=== PATIENT | male | born 1995 | race African-American/Black ===

== ENCOUNTER 2018-03-15 16:13 | Emergency (ER) | payer OTHER ==
--- NOTE | 2018-03-15 17:42 | ED ---
Chest Pain HPI - General Chief Complaint: Chest Pain Stated Complaint: Chest Pain Time Seen by Provider: 03/15/18 16:29 Source: patient, RN notes reviewed Mode of arrival: ambulatory Limitations: no limitations - History of Present Illness Initial Comments: 22-year-old male presents emergency Department chief complaint of chest pain. Patient states started while at work. Patient states that it hurts when he coughs, sneezes or twists or bends. Patient states that he has no prior cardiac disease. Patient is a daily smoker. Patient denies hypertension, hyperlipidemia or family history of heart disease. Patient denies any shortness breath, no headache no dizziness no nausea no vomiting no diarrhea no constipation. - Related Data Previous Rx's Medication Instructions Recorded Ibuprofen [Motrin] 600 mg PO Q8HR PRN #30 tab 03/15/18 Allergies Allergy/AdvReac Type Severity Reaction Status Date / Time No Known Allergies Allergy Verified 03/15/18 16:31 Review of Systems ROS Statement: Those systems with pertinent positive or pertinent negative responses have been documented in the HPI. ROS Other: All systems not noted in ROS Statement are negative. EKG Findings - EKG Comments: EKG Findings:: EKG performed at 16:49, sinus bradycardia with sinus arrhythmia, rate of 59, OR 122, QRS 96/QTC 396/392 Past Medical History Past Medical History: No Reported History History of Any Multi-Drug Resistant Organisms: None Reported Past Surgical History: No Surgical Hx Reported Past Psychological History: No Psychological Hx Reported Smoking Status: Current every day smoker Past Alcohol Use History: None Reported Past Drug Use History: None Reported General Exam Limitations: no limitations General appearance: alert, in no apparent distress Head exam: Present: atraumatic, normocephalic, normal inspection Respiratory exam: Present: normal lung sounds bilaterally, chest wall tenderness. Absent: respiratory distress, wheezes, rales, rhonchi, stridor Cardiovascular Exam: Present: regular rate, normal rhythm, normal heart sounds. Absent: systolic murmur, diastolic murmur, rubs, gallop, clicks GI/Abdominal exam: Present: soft, normal bowel sounds. Absent: distended, tenderness, guarding, rebound, rigid Skin exam: Present: warm, dry, intact, normal color. Absent: rash Course Vital Signs 03/15/18 03/15/18 16:15 17:43 Temperature 98.2 F 98.6 F Pulse Rate 64 61 Respiratory 16 18 Rate Blood Pressure 141/80 135/73 O2 Sat by Pulse 100 98 Oximetry Chest Pain MDM - MDM 22-year-old male presented for chest pain. Patient had chest x-ray, EKG which is unremarkable. Patient's pain is reproducible and worse with movement. This is more consistent with costochondritis and flexion of the chest wall. Patient is advised to stop smoking. He is counseled in detail greater than 3 minutes regarding smoking sensation. Patient was started on anti-inflammatories and return parameters were discussed. Disposition Clinical Impression: Chest wall pain Disposition: HOME SELF-CARE Condition: Stable Instructions: Costochondritis (ED) Additional Instructions: Please return to the Emergency Department if symptoms worsen or any other concerns. Prescriptions: Ibuprofen [Motrin] 600 mg PO Q8HR PRN #30 tab PRN Reason: Pain Is patient prescribed a controlled substance at d/c from ED?: No Referrals: None,Stated [Primary Care Provider] - 1-2 days
[2018-03-15 17:49] VITALS: RESP 18; TEMP 98.6
--- NOTE | 2018-03-15 17:53 | XR ---
EXAMINATION: XR chest 2V DATE AND TIME: 03/15/2018 5:13 PM ORDERING PROVIDER: Yogesh Madison CLINICAL INDICATION: Cough/pain TECHNIQUE: PA and lateral COMPARISON: None. DESCRIPTION: The lungs are clear. The pleural spaces are negative. The cardiac silhouette is not enlarged. The mediastinal and pleural silhouettes are unremarkable. The skeletal structures are intact without focal findings. The soft tissues are unremarkable. IMPRESSION: NO ACUTE PROCESS.
[2018-03-15 18:01] VITALS: BP 124/88; PULSE 68
== END 2018-03-15 18:01 | disposition home or self-care (01) ==
LOC: EC 16:13
DX: R07.89 Other chest pain (principal); F17.200 Nicotine dependence, unspecified, uncomplicated; Z71.6 Tobacco abuse counseling
CPT/HCPCS: 71046; 93005; 99285; 99406

== ENCOUNTER 2018-11-24 00:36 | Emergency (ER) | payer OTHER ==
[2018-11-24 00:59] VITALS: BP 134/73; PULSE 78; RESP 20
[2018-11-24] MEDS ORDERED: ACETAMINOPHEN TAB 325 MG TAB PO STA (01:31)
[2018-11-24] MEDS ORDERED: IBUPROFEN 600 MG TAB PO STA (01:31)
[2018-11-24] MEDS ORDERED: DEXAMETHASONE SOD PHOSPHATE 10 MG/ML 1 ML VIAL IM STA (01:32)
--- NOTE | 2018-11-24 02:30 | ED ---
ENT HPI - General Chief complaint: ENT Stated complaint: ENT,brittanieroat Time Seen by Provider: 11/24/18 01:12 Source: patient Mode of arrival: ambulatory Limitations: no limitations - History of Present Illness Initial comments: 23-year-old male patient presents to the emergency department today for complaints of sore throat. Patient states that sore throat started a couple days ago but worsened tonight. Patient states very difficult to swallow due to the pain. Patient states he has felt feverish and chilled with this. States he has not taking anything for pain or discomfort. Denies any nasal congestion or cough. States he has been fatigued. Denies any sick contacts. Patient denies any recent rash, shortness breath, chest pain, abdominal pain, nausea, vomiting, diarrhea, constipation, back pain, numbness, tingling, dizziness, weakness, hematuria, dysuria, urinary urgency, urinary frequency, headache, visual changes, or any other complaints. - Related Data Home Medications Medication Instructions Recorded Confirmed No Known Home Medications 11/24/18 11/24/18 Allergies Allergy/AdvReac Type Severity Reaction Status Date / Time No Known Allergies Allergy Verified 03/15/18 16:31 Review of Systems ROS Statement: Those systems with pertinent positive or pertinent negative responses have been documented in the HPI. ROS Other: All systems not noted in ROS Statement are negative. Past Medical History Past Medical History: No Reported History History of Any Multi-Drug Resistant Organisms: None Reported Past Surgical History: No Surgical Hx Reported Past Psychological History: No Psychological Hx Reported Smoking Status: Current every day smoker Past Alcohol Use History: None Reported Past Drug Use History: Marijuana General Exam Limitations: no limitations General appearance: alert, in no apparent distress, other (Physical well- developed, well-nourished adult male patient in no acute distress. Vital signs upon presentation are temperature 100.0F, pulse 78, respirations 20, blood pressure 134/73, pulse ox 99% on room air.) Eye exam: Present: normal appearance, PERRL, EOMI. Absent: scleral icterus, conjunctival injection, periorbital swelling ENT exam: Present: mucous membranes moist, TM's normal bilaterally. Absent: normal exam, normal oropharynx (Pharyngeal erythema, tonsillar hypertrophy) Neck exam: Present: normal inspection. Absent: tenderness, meningismus, lymphadenopathy Respiratory exam: Present: normal lung sounds bilaterally. Absent: respiratory distress, wheezes, rales, rhonchi, stridor Cardiovascular Exam: Present: regular rate, normal rhythm, normal heart sounds. Absent: systolic murmur, diastolic murmur, rubs, gallop, clicks GI/Abdominal exam: Present: soft, normal bowel sounds. Absent: distended, tenderness, guarding, rebound, rigid Neurological exam: Present: alert, oriented X3, CN II-XII intact Psychiatric exam: Present: normal affect, normal mood Skin exam: Present: warm, dry, intact, normal color. Absent: rash Course Vital Signs 11/24/18 11/24/18 00:56 03:11 Temperature 100 F H 98.1 F Pulse Rate 78 Respiratory 20 Rate Blood Pressure 134/73 O2 Sat by Pulse 99 Oximetry Medical Decision Making - Medical Decision Making 23-year-old male patient presented to the emergency department today for evaluation of sore throat. Physical examination did reveal pharyngeal erythema. There is no tonsillar exudate or hypertrophy. No lymphadenopathy. Strep and mono test were negative. Patient symptoms are consistent with viral pharyngitis. He was given an IM dose of Decadron here in the emergency department. He is instructed to increase fluids and alternate Tylenol Motrin for pain and fever control. He is instructed to follow-up with his primary care physician for recheck in 1-2 days. Return parameters were discussed in detail. He verbalizes understanding and agrees with this plan. - Lab Data Lab Results 11/24/18 11/24/18 Range/Units 01:37 01:37 Heterophile Antibody Negative (Negative) Group A Strep Rapid Negative (Negative) Disposition Clinical Impression: Viral pharyngitis Disposition: HOME SELF-CARE Condition: Good Instructions (If sedation given, give patient instructions): Pharyngitis (ED) Additional Instructions: Increase fluids. Take Tylenol and Motrin for pain and fever control. Use cough drops and lozenges to soothe the throat. Follow-up with primary care physician for recheck in 1-2 days. Return to the emergency department immediately for any new, worsening, or concerning symptoms. Is patient prescribed a controlled substance at d/c from ED?: No Referrals: None,Stated [Primary Care Provider] - 1-2 days Time of Disposition: 02:53
[2018-11-24 03:12] VITALS: TEMP 98.1
== END 2018-11-24 03:11 | disposition home or self-care (01) ==
LOC: EC 00:36
DX: J02.9 Acute pharyngitis, unspecified (principal); R53.83 Other fatigue; F17.200 Nicotine dependence, unspecified, uncomplicated
CPT/HCPCS: 36415; 86308; 87081; 87430; 99283; 96372; J1100

== ENCOUNTER 2019-01-03 19:09 | Emergency (ER) | payer BC, OTHER ==
[2019-01-03 19:15] VITALS: BP 132/82; PULSE 68; RESP 18; TEMP 98.2
[2019-01-03] MEDS ORDERED: CYCLOBENZAPRINE 10MG STARTER 3 TAB BTL PO STA (19:33)
[2019-01-03] MEDS ORDERED: IBUPROFEN 600 MG STARTER PACK 4 TAB BTL PO STA (19:33)
--- NOTE | 2019-01-03 19:36 | ED ---
Back Pain HPI - General Chief Complaint: Back Pain/Injury Stated Complaint: back pain Time Seen by Provider: 01/03/19 19:19 Source: patient, RN notes reviewed, old records reviewed Limitations: no limitations - History of Present Illness Initial Comments: Patient is 23-year-old male who presents emergency department today with chief plan of lower back pain worse with movement. Patient reports symptoms started the past few days after starting a new job. Patient states he's had this happen intermittently starting new physical activity. Patient states he's had no fall or trauma to the back. He denies any fevers chills. Denies any saddle anesthesias. He denies any radiation of pain. Patient denies any recent fever, chills, shortness of breath, chest pain, back pain, abdominal pain, nausea vomiting, numbness or tingling, dysuria or hematuria, constipation or diarrhea, headaches or visual changes, or any other current symptoms - Related Data Previous Rx's Medication Instructions Recorded Ibuprofen [Motrin] 600 mg PO Q6HR PRN #20 tab 01/03/19 Allergies Allergy/AdvReac Type Severity Reaction Status Date / Time No Known Allergies Allergy Verified 01/03/19 19:15 Review of Systems ROS Statement: Those systems with pertinent positive or pertinent negative responses have been documented in the HPI. ROS Other: All systems not noted in ROS Statement are negative. Past Medical History Past Medical History: No Reported History History of Any Multi-Drug Resistant Organisms: None Reported Past Surgical History: No Surgical Hx Reported Past Psychological History: No Psychological Hx Reported Smoking Status: Current every day smoker Past Alcohol Use History: None Reported Past Drug Use History: Marijuana General Exam Limitations: no limitations General appearance: alert, in no apparent distress Head exam: Present: atraumatic, normocephalic, normal inspection Eye exam: Present: normal appearance, PERRL, EOMI. Absent: scleral icterus, conjunctival injection, periorbital swelling ENT exam: Present: normal exam, mucous membranes moist Neck exam: Present: normal inspection. Absent: tenderness, meningismus, lymphadenopathy Respiratory exam: Present: normal lung sounds bilaterally Cardiovascular Exam: Present: regular rate, normal rhythm, normal heart sounds. Absent: systolic murmur, diastolic murmur, rubs, gallop, clicks GI/Abdominal exam: Present: soft, normal bowel sounds. Absent: distended, guarding, rebound, rigid Extremities exam: Present: normal inspection, full ROM, normal capillary refill. Absent: tenderness, pedal edema, joint swelling, calf tenderness Back exam: Present: normal inspection, tenderness (lumbar paraspinal muscle tenderness ). Absent: muscle spasm, paraspinal tenderness Neurological exam: Present: alert, oriented X3, CN II-XII intact Psychiatric exam: Present: normal affect, normal mood Skin exam: Present: warm, dry, intact, normal color. Absent: rash Course Vital Signs 01/03/19 19:12 Temperature 98.2 F Pulse Rate 68 Respiratory 18 Rate Blood Pressure 132/82 O2 Sat by Pulse 99 Oximetry Medical Decision Making - Medical Decision Making 23-year-old male presents emergency department today with complaints of lower back pain and strain after lifting. Has no lumbar spinal tenderness. Patient has full range of motion and normal pulses and sensation distally. Patient will be discharged at this time with prescription for Motrin short course of muscle relaxers. Discussed putting warm compresses over the area. Disposition Clinical Impression: Lumbar back sprain Disposition: HOME SELF-CARE Condition: Good Instructions (If sedation given, give patient instructions): Acute Low Back Pain (ED) Additional Instructions: Patient advised to take Motrin and Tylenol for pain. Follow-up with primary care physician and commercial loan specialist if symptoms persist. Patient should apply warm compresses over the back. Return to the emergency department if any alarming signs or symptoms occur. Prescriptions: Ibuprofen [Motrin] 600 mg PO Q6HR PRN #20 tab PRN Reason: Pain Is patient prescribed a controlled substance at d/c from ED?: No Referrals: None,Stated [Primary Care Provider] - 1-2 days Laura Juarez MD [STAFF PHYSICIAN] - 1-2 days Time of Disposition: 19:34
== END 2019-01-03 19:44 | disposition home or self-care (01) ==
LOC: EC 19:09
DX: S33.5XXA Sprain of ligaments of lumbar spine, initial encounter (principal); F17.200 Nicotine dependence, unspecified, uncomplicated
CPT/HCPCS: 99283

== ENCOUNTER 2019-06-25 21:39 | Emergency (ER) | payer BC ==
[2019-06-25 21:47] VITALS: RESP 18
--- NOTE | 2019-06-25 23:01 | ED ---
Chest Pain HPI - General Chief Complaint: Chest Pain Stated Complaint: Chest pain Time Seen by Provider: 06/25/19 22:19 Source: patient Mode of arrival: ambulatory Limitations: no limitations - History of Present Illness Initial Comments: Patient is 24-year-old male presenting to emergency Department with a chest chief complaint of chest pain and shortness of breath. Patient reports he developed a burning sensation in his chest that is especially exacerbated with inspiration. Patient also reports he developed shortness of breath at the same time. Patient reports the chest pain is not reproducible. Patient denies history of asthma. Patient smokes about a pack daily. Patient currently denies any chest pain, shortness of breath or wheezing. Patient reports he recently started a new job and has slowly began to develop respiratory symptoms. Patient denies cough, nausea, vomiting, night sweats fevers or chills. Patient denies URI symptoms. Patient denies diaphoresis or previous history of cardiac vascular disease. - Related Data Previous Rx's Medication Instructions Recorded Nicotine 14Mg/24Hr Patch [Habitrol] 1 patch TRANSDERM DAILY #8 patch 06/26/19 Allergies Allergy/AdvReac Type Severity Reaction Status Date / Time No Known Allergies Allergy Verified 06/25/19 22:14 Review of Systems ROS Statement: Those systems with pertinent positive or pertinent negative responses have been documented in the HPI. ROS Other: All systems not noted in ROS Statement are negative. EKG Findings - EKG Comments: EKG Findings:: Normal sinus rhythm with sinus arrhythmia. Ventricular rate 69, AK interval 138, QRS duration 90, QT/QTC 386/413, p-r-t axes 66 76 56 Past Medical History Past Medical History: No Reported History History of Any Multi-Drug Resistant Organisms: None Reported Past Surgical History: No Surgical Hx Reported Past Psychological History: No Psychological Hx Reported Smoking Status: Current every day smoker Past Alcohol Use History: None Reported Past Drug Use History: Marijuana General Exam Limitations: no limitations General appearance: alert, in no apparent distress Head exam: Present: atraumatic, normocephalic, normal inspection Eye exam: Present: normal appearance, PERRL, EOMI Pupils: Present: normal accommodation ENT exam: Present: normal exam, normal oropharynx, mucous membranes moist, TM's normal bilaterally, normal external ear exam Neck exam: Present: normal inspection, full ROM. Absent: tenderness Respiratory exam: Present: normal lung sounds bilaterally Cardiovascular Exam: Present: regular rate, normal rhythm, normal heart sounds Extremities exam: Present: normal inspection, full ROM Back exam: Present: normal inspection, full ROM Neurological exam: Present: alert, oriented X3 Psychiatric exam: Present: normal affect, normal mood Skin exam: Present: warm, intact, normal color Course Vital Signs 06/25/19 21:45 Temperature 98.4 F Pulse Rate 86 Respiratory 18 Rate Blood Pressure 170/70 O2 Sat by Pulse 98 Oximetry Chest Pain MDM - Core Measures AMI Core Measures Followed: No - Differential Diagnosis Pleurisy-Other, GERD - MDM Patient is a 24-year-old male presenting to emergency Department with a chief complaint of chest pain or shortness of breath. Patient reports burning sensation in his chest that only occurred last night. Patient reports the pain was exacerbated with full inspiration. On initial evaluation patient does not report any chest pain or shortness of breath. Patient is a smoker and started a new job about one week ago that has a lot of dust. Patient doesn't have any previous cardiac history or any family history of cardiovascular issues. EKG is unremarkable. Chest x-ray was reviewed with Dr. Castro and is unremarkable. At this point no further workup is warranted, as I suspect the patient to have the shortness of breath due to smoking and possible dust work exposure. I believe the patient has not suffered actual chest pain but rather an exacerbation of his shortness of breath. Patient has stable vitals and discharge. Patient also given a prescription of nicotine patches.I counseled the patient for smoking cessation for greater than 3 minutes. Strict return parameters were thoroughly discussed the patient was understanding and agreeable. Case discussed with physician. Disposition Clinical Impression: Shortness of breath Disposition: HOME SELF-CARE Condition: Stable Instructions (If sedation given, give patient instructions): Shortness of Breath (ED) Additional Instructions: Please follow with primary care. Please return to emergency department if symptoms worsen. Please avoid smoking cigarettes. Is patient prescribed a controlled substance at d/c from ED?: No Referrals: None,Stated [Primary Care Provider] - 1-2 days Time of Disposition: 00:37
[2019-06-26 00:45] VITALS: BP 122/70; PULSE 61; TEMP 97.9
--- NOTE | 2019-06-26 02:04 | XR ---
EXAM: XR Chest, 2 Views CLINICAL HISTORY: ITS.REASON XR Reason: sob TECHNIQUE: Frontal and lateral views of the chest. COMPARISON: 03/15/18 FINDINGS: Lungs: No consolidation or mass. Pleural space: No effusion. Heart: No cardiomegaly. Mediastinum: Unremarkable. Bones/joints: No acute findings. IMPRESSION: No acute cardiopulmonary process.
== END 2019-06-26 00:45 | disposition home or self-care (01) ==
LOC: EC 21:39
DX: R06.02 Shortness of breath (principal); F17.210 Nicotine dependence, cigarettes, uncomplicated; Z71.6 Tobacco abuse counseling
CPT/HCPCS: 71046; 93005; 99285

== ENCOUNTER 2020-05-21 13:20 | Emergency (ER) | payer BC ==
--- NOTE | 2020-05-21 13:37 | ED ---
ENT HPI - General Chief complaint: ENT Stated complaint: Ear pain, throat pain Time Seen by Provider: 05/21/20 13:31 Source: patient, RN notes reviewed, old records reviewed Mode of arrival: ambulatory Limitations: no limitations - History of Present Illness Initial comments: Patient is a 25-year-old male presents for intermittent today for evaluation for concern for sore throat and L ear pain for 3 days.Patient denies any history of sick contacts. Reports he took some Tylenol last night. But nothing today. Reports it seems like it's hard to her to swallow due to the pain of the back of his throat. Patient denies any coughing or difficulty breathing. He denies any nausea or vomiting. Denies any recent antibiotic use. - Related Data Previous Rx's Medication Instructions Recorded Nicotine 14Mg/24Hr Patch [Habitrol] 1 patch TRANSDERM DAILY #8 patch 06/26/19 Amoxicillin 500 mg PO TID #30 capsule 05/21/20 predniSONE [Deltasone] 20 mg PO DIRECTED #12 tab 05/21/20 Allergies Allergy/AdvReac Type Severity Reaction Status Date / Time No Known Allergies Allergy Verified 05/21/20 13:26 Review of Systems ROS Statement: Those systems with pertinent positive or pertinent negative responses have been documented in the HPI. ROS Other: All systems not noted in ROS Statement are negative. Past Medical History Past Medical History: No Reported History History of Any Multi-Drug Resistant Organisms: None Reported Past Surgical History: No Surgical Hx Reported Past Psychological History: No Psychological Hx Reported Smoking Status: Current every day smoker Past Alcohol Use History: None Reported Past Drug Use History: Marijuana General Exam - General Exam Comments Initial Comments: [id number] male. Alert and oriented 3. No significant distress. Limitations: no limitations General appearance: alert, in no apparent distress Head exam: Present: atraumatic, normocephalic, normal inspection Eye exam: Present: normal appearance, PERRL, EOMI. Absent: scleral icterus, conjunctival injection, periorbital swelling ENT exam: Present: normal exam, mucous membranes moist. Absent: normal oropharynx (erythematous oropharynx, some exudate noted. No peritonsillar abscess, patient has normal uvula, no drooling. ) Neck exam: Present: normal inspection. Absent: tenderness, meningismus, lymphadenopathy Respiratory exam: Present: normal lung sounds bilaterally. Absent: respiratory distress, wheezes, rales, rhonchi, stridor Cardiovascular Exam: Present: regular rate, normal rhythm, normal heart sounds. Absent: systolic murmur, diastolic murmur, rubs, gallop, clicks Course Vital Signs 05/21/20 13:25 Temperature 98.8 F Pulse Rate 83 Respiratory 20 Rate Blood Pressure 134/75 O2 Sat by Pulse 99 Oximetry Medical Decision Making - Medical Decision Making Is a 25-year-old male presents emergency department today for evaluation for sore throat and left ear pain. He has evidence of pharyngeal erythema or tonsillar swelling. It is of some tonsillar adenopathy as well. TMs appear intact with minimal erythema on the left TM. No drainage noted. Ear canals are normal. Treated the patient's temperature of pharyngitis with amoxicillin. Was given a dose of steroid for tonsillar swelling. Patient advised close follow-up with primary care doctor. Disposition Clinical Impression: Pharyngitis Disposition: HOME SELF-CARE Condition: Good Instructions (If sedation given, give patient instructions): Pharyngitis (ED) Additional Instructions: Please use medication as discussed. Please follow up with family doctor if symptoms have not improved over the next two days. Please return to the emergency room if your symptoms increase or worsen or for any other concerns. Prescriptions: Amoxicillin 500 mg PO TID #30 capsule predniSONE [Deltasone] 20 mg PO DIRECTED #12 tab Is patient prescribed a controlled substance at d/c from ED?: No Referrals: None,Stated [Primary Care Provider] - 1-2 days Sandra Sue MD [REFERRING] - 1-2 days Time of Disposition: 13:54
[2020-05-21] MEDS ORDERED: IBUPROFEN 600 MG STARTER PACK 4 TAB BTL PO STA (13:42)
[2020-05-21] MEDS ORDERED: ACETAMINOPHEN TAB 500 MG TAB PO STA (13:42)
[2020-05-21] MEDS ORDERED: AMOXICILLIN 500 MG CAP PO ONE (13:43)
[2020-05-21 14:39] VITALS: BP 135/70; PULSE 87; RESP 16; TEMP 98.2
== END 2020-05-21 14:37 | disposition home or self-care (01) ==
LOC: EC 13:20
DX: J02.9 Acute pharyngitis, unspecified (principal); H92.02 Otalgia, left ear; F17.200 Nicotine dependence, unspecified, uncomplicated
CPT/HCPCS: 87081; 87430; 99284

== ENCOUNTER 2020-07-18 02:50 | Emergency (ER) | payer BC, OTHER ==
[2020-07-18] MEDS ORDERED: MORPHINE SULFATE 4 MG/ML SYRINGE IV STA (03:05)
[2020-07-18] MEDS ORDERED: SODIUM CHLORIDE 0.9% 1,000 ML IV ONE (03:05)
[2020-07-18 03:24] LABS: Basophils # (A) 0.1 k/uL (0-0.2); Basophils % (A) 0 %; Eosinophils # (A) 0.2 k/uL (0-0.7); Eosinophils % (A) 2 %; HCT 47.6 % (39.0-53.0); HGB 15.7 gm/dL (13.0-17.5); Lymphocytes # (A) 2.9 k/uL (1.0-4.8); Lymphocytes % (A) 24 %; MCH 31.1 pg (25.0-35.0); MCHC 32.9 g/dL (31.0-37.0); MCV 94.7 fL (80.0-100.0); Monocytes # (A) 0.5 k/uL (0-1.0); Monocytes % (A) 4 %; Neutrophils # (A) 8.3 k/uL (1.3-7.7); Neutrophils % (A) 68 %; Platelet Count 241 k/uL (150-450); RBC 5.03 m/uL (4.30-5.90); RDW 12.5 % (11.5-15.5); WBC 12.2 k/uL (3.8-10.6)
[2020-07-18 03:27] LABS: Appearance,Urine Clear (Clear); Bilirubin,Urine Negative (Negative); Blood,Urine Negative (Negative); Color,Urine Colorless; Glucose,Urine (UA) Negative (Negative); Ketones,Urine Negative (Negative); Leukocyte Esterase,Urine Negative (Negative); Nitrite,Urine Negative (Negative); Protein,Urine Negative (Negative); Specific Gravity,Urine 1.003 (1.001-1.035); Urobilinogen,Urine <2.0 mg/dL (<2.0)
[2020-07-18 03:33] LABS: INR 0.9 (<1.2); Partial Thromboplastin Time 22.6 sec (22.0-30.0); Prothrombin Time 9.6 sec (9.0-12.0)
[2020-07-18 03:46] LABS: ALT 18 U/L (4-49); AST 34 U/L (17-59); African American GFR (CKD) >90 (>60 ml/min/1.73 sqM); Albumin 4.8 g/dL (3.5-5.0); Alkaline Phosphatase 60 U/L (38-126); Anion Gap 14 mmol/L; Blood Urea Nitrogen 14 mg/dL (9-20); Calcium 9.7 mg/dL (8.4-10.2); Carbon Dioxide 20 mmol/L (22-30); Chloride 107 mmol/L (98-107); Glucose 107 mg/dL (74-99); Non-African American GFR(CKD) >90 (>60 ml/min/1.73 sqM); Sodium 141 mmol/L (137-145); Total Bilirubin 0.6 mg/dL (0.2-1.3); Total Protein 8.1 g/dL (6.3-8.2)
[2020-07-18 03:47] LABS: Amphetamine Screen,Urine Not Detected (NotDetected); Barbiturate Screen,Urine Not Detected (NotDetected); Benzodiazepines Screen,Urine Not Detected (NotDetected); Cocaine Screen,Urine Not Detected (NotDetected); Methadone Screen, Urine Not Detected (NotDetected); Opiate Screen,Urine Not Detected (NotDetected); Oxycodone Screen, Urine Not Detected (NotDetected); Phencyclidine Screen,Urine Not Detected (NotDetected); Tricyclic Antidepressant,Urine Not Detected (NotDetected); Urn Cannabinoid Scrn Detected (NotDetected)
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
--- NOTE | 2020-07-18 03:51 | XR ---
EXAMINATION TYPE: XR chest 1V portable DATE OF EXAM: 07/18/2020 COMPARISON: 06/25/2019 HISTORY: Chest pain TECHNIQUE: Single view FINDINGS: Heart is normal. Lungs are clear. Diaphragm is normal. Bony thorax appears normal. IMPRESSION: Normal chest. No change.
[2020-07-18 03:55] LABS: Alcohol 188 mg/dL
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
[2020-07-18 06:57] VITALS: BP 122/68; PULSE 77; RESP 18; TEMP 97.6
== END 2020-07-18 06:30 | disposition home or self-care (01) ==
LOC: EC 02:50
DX: T14.8XXA Other injury of unspecified body region, initial encounter (principal); F17.200 Nicotine dependence, unspecified, uncomplicated; V43.52XA Car driver injured in collision with other type car in traffic accident, initial encounter; Y92.410 Unspecified street and highway as the place of occurrence of the external cause
CPT/HCPCS: 36415; 93005; 86900; 86901; 80053; 83605; 84484; 85025; 85610; 85730; 86850; 81003; 80306; 80320; 73610; 71045; 72125; 70450; 74177; 99285; 96374; 96361; J2270; Q9967

== ENCOUNTER 2020-12-21 06:45 | Emergency (ER) | payer OTHER ==
[2020-12-21 06:52] VITALS: TEMP 98
[2020-12-21] MEDS ORDERED: ASPIRIN 81 MG PO STA (07:05)
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
[2020-12-21 07:27] LABS: Basophils % (A) 0 %; Eosinophils # (A) 0.1 k/uL (0-0.7); Eosinophils % (A) 2 %; HCT 42.1 % (39.0-53.0); HGB 13.9 gm/dL (13.0-17.5); Lymphocytes # (A) 1.1 k/uL (1.0-4.8); Lymphocytes % (A) 15 %; MCH 31.3 pg (25.0-35.0); MCV 94.9 fL (80.0-100.0); Mean Platelet Volume 6.6; Monocytes # (A) 0.5 k/uL (0-1.0); Monocytes % (A) 6 %; Neutrophils # (A) 5.2 k/uL (1.3-7.7); Neutrophils % (A) 74 %; Platelet Count 257 k/uL (150-450); RBC 4.44 m/uL (4.30-5.90); RDW 11.7 % (11.5-15.5)
[2020-12-21 07:32] VITALS: BP 128/71; PULSE 71; RESP 16
[2020-12-21 07:37] LABS: ALT 19 U/L (4-49); AST 25 U/L (17-59); African American GFR (CKD) >90 (>60 ml/min/1.73 sqM); Albumin 4.3 g/dL (3.5-5.0); Alkaline Phosphatase 53 U/L (38-126); Anion Gap 8 mmol/L; Blood Urea Nitrogen 10 mg/dL (9-20); Calcium 9.7 mg/dL (8.4-10.2); Carbon Dioxide 27 mmol/L (22-30); Chloride 105 mmol/L (98-107); Glucose 127 mg/dL (74-99); Non-African American GFR(CKD) >90 (>60 ml/min/1.73 sqM); Potassium 4.4 mmol/L (3.5-5.1); Sodium 140 mmol/L (137-145); Total Bilirubin 1.1 mg/dL (0.2-1.3); Total Protein 7.7 g/dL (6.3-8.2)
[2020-12-21 07:42] LABS: INR 0.9 (<1.2); Partial Thromboplastin Time 25.5 sec (22.0-30.0); Prothrombin Time 9.8 sec (9.0-12.0)
== END 2020-12-21 08:08 | disposition home or self-care (01) ==
LOC: EC 06:45
DX: J18.9 Pneumonia, unspecified organism (principal); F17.200 Nicotine dependence, unspecified, uncomplicated
CPT/HCPCS: 36415; 71046; 80053; 83735; 84484; 85025; 85379; 85610; 85730; 93005; 99285

== ENCOUNTER 2021-03-16 06:31 | Emergency (ER) | payer OTHER ==
[2021-03-16 06:44] VITALS: RESP 18
--- NOTE | 2021-03-16 06:52 | ED ---
General Adult HPI - General Chief complaint: Shortness of Breath Stated complaint: SOB, headache Time Seen by Provider: 03/16/21 06:44 Source: patient, RN notes reviewed Mode of arrival: ambulatory Limitations: no limitations - History of Present Illness Initial comments: 25-year-old male presents emergency Department with chief complaint of body aches, not feeling well this morning, shortness breath. Patient concerning the Covid. No past medical history. No medications patient has nausea vomiting diarrhea constipation no fevers or chills. Patient denies any known sick contacts no other complaints. - Related Data Home Medications Medication Instructions Recorded Confirmed No Known Home Medications 03/16/21 03/16/21 Allergies Allergy/AdvReac Type Severity Reaction Status Date / Time No Known Allergies Allergy Verified 03/16/21 08:32 Review of Systems ROS Statement: Those systems with pertinent positive or pertinent negative responses have been documented in the HPI. ROS Other: All systems not noted in ROS Statement are negative. Past Medical History Past Medical History: No Reported History History of Any Multi-Drug Resistant Organisms: None Reported Past Surgical History: No Surgical Hx Reported Past Psychological History: No Psychological Hx Reported Smoking Status: Current every day smoker Past Alcohol Use History: Rare Past Drug Use History: Marijuana General Exam Limitations: no limitations General appearance: alert, in no apparent distress Head exam: Present: atraumatic, normocephalic, normal inspection Eye exam: Present: normal appearance, PERRL, EOMI. Absent: scleral icterus, conjunctival injection, periorbital swelling ENT exam: Present: normal exam, normal oropharynx, mucous membranes moist, TM's normal bilaterally Neck exam: Present: normal inspection, full ROM. Absent: tenderness, meningismus, lymphadenopathy Respiratory exam: Present: normal lung sounds bilaterally. Absent: respiratory distress, wheezes, rales, rhonchi, stridor Cardiovascular Exam: Present: regular rate, normal rhythm, normal heart sounds. Absent: systolic murmur, diastolic murmur, rubs, gallop, clicks Neurological exam: Present: alert Skin exam: Present: warm, dry, intact, normal color. Absent: rash Course Vital Signs 03/16/21 03/16/21 06:38 06:48 Temperature 98.2 F Pulse Rate 70 Respiratory 18 18 Rate Blood Pressure 119/71 O2 Sat by Pulse 99 Oximetry Medical Decision Making - Medical Decision Making Referral presented for 5 days for covid 19 negative chest x-rays unremarkable patient's vitals are stable. Patient we discharged stable condition. - Lab Data Lab Results 03/16/21 Range/Units 06:51 Coronavirus (PCR) Not Detected (Not Detectd) Disposition Clinical Impression: Myalgia, Viral infection Disposition: HOME SELF-CARE Condition: Serious Instructions (If sedation given, give patient instructions): Viral Syndrome (ED) Additional Instructions: Please return to the Emergency Department if symptoms worsen or any other concerns. Is patient prescribed a controlled substance at d/c from ED?: No Referrals: None,Stated [Primary Care Provider] - 1-2 days Time of Disposition: 08:41
--- NOTE | 2021-03-16 07:34 | XR ---
EXAM: XR Chest, 1 View CLINICAL HISTORY: ITS.REASON XR Reason: sob TECHNIQUE: Frontal view of the chest. COMPARISON: 12/21/2020 FINDINGS: Lungs: Unremarkable. No consolidation. Pleural space: Unremarkable. No pneumothorax. Heart: Unremarkable. No cardiomegaly. Mediastinum: Unremarkable. Bones/joints: Unremarkable. IMPRESSION: No acute pulmonary process.
[2021-03-16 09:19] VITALS: BP 121/75; PULSE 71; TEMP 97.4
== END 2021-03-16 09:19 | disposition home or self-care (01) ==
LOC: EC 06:31
DX: B34.9 Viral infection, unspecified (principal); R06.02 Shortness of breath; F17.200 Nicotine dependence, unspecified, uncomplicated; F12.90 Cannabis use, unspecified, uncomplicated; Z20.822 Contact with and (suspected) exposure to COVID-19
CPT/HCPCS: 71045; 87635; 99285

== ENCOUNTER 2021-03-19 14:22 | Emergency (ER) | payer OTHER ==
--- NOTE | 2021-03-19 15:41 | ED ---
Lower Extremity Injury HPI - General Chief Complaint: Extremity Injury, Lower Stated Complaint: Ankle pain Time Seen by Provider: 03/19/21 15:31 Source: patient Mode of arrival: ambulatory Limitations: no limitations - History of Present Illness Initial Comments: 25-year-old male presents to the emergency department with a chief complaint of a left ankle injury. States this occurred yesterday while he was playing basketball and fell on his left ankle. He reports swelling along the lateral malleolus and bruising in the region as well. Reports pain is exacerbated with ambulation and weightbearing but alleviated at rest. Denies any paresthesias. Reports of range of motion due to pain. Denies taking medications alleviate the symptoms. States the pain is sharp 04/24. - Related Data Home Medications Medication Instructions Recorded Confirmed No Known Home Medications 03/16/21 03/16/21 Allergies Allergy/AdvReac Type Severity Reaction Status Date / Time No Known Allergies Allergy Verified 03/19/21 15:24 Review of Systems ROS Statement: Those systems with pertinent positive or pertinent negative responses have been documented in the HPI. ROS Other: All systems not noted in ROS Statement are negative. Past Medical History Past Medical History: No Reported History History of Any Multi-Drug Resistant Organisms: None Reported Past Surgical History: No Surgical Hx Reported Past Psychological History: No Psychological Hx Reported Smoking Status: Current every day smoker Past Alcohol Use History: Rare Past Drug Use History: Marijuana General Exam Limitations: no limitations General appearance: alert, in no apparent distress Head exam: Present: atraumatic, normocephalic, normal inspection Eye exam: Present: normal appearance, PERRL, EOMI Pupils: Present: normal accommodation ENT exam: Present: normal exam, normal oropharynx, mucous membranes moist, TM's normal bilaterally, normal external ear exam Neck exam: Present: normal inspection, full ROM. Absent: tenderness Respiratory exam: Present: normal lung sounds bilaterally. Absent: respiratory distress, wheezes, rales, rhonchi, stridor, chest wall tenderness, accessory muscle use Cardiovascular Exam: Present: regular rate, normal rhythm, normal heart sounds. Absent: systolic murmur Extremities exam: Present: tenderness (Lateral malleolus tenderness. Fifth metatarsal tenderness.), normal capillary refill, other (Palpable DP and PT bilaterally. Sensation intact in the left foot.). Absent: normal inspection (Mild swelling and ecchymosis along the lateral left malleolus), full ROM (Limited range of motion with inversion and eversion and plantar flexion due to pain), pedal edema, joint swelling, calf tenderness Back exam: Present: normal inspection, full ROM. Absent: tenderness, CVA tenderness (R), CVA tenderness (L) Neurological exam: Present: alert, oriented X3 Psychiatric exam: Present: normal affect, normal mood Skin exam: Present: warm, dry, intact, normal color Course Vital Signs 03/19/21 15:20 Temperature 98.1 F Pulse Rate 62 Respiratory 20 Rate Blood Pressure 114/72 O2 Sat by Pulse 95 Oximetry Procedures - Orthopedic Splinting/Casting Injury #1 Side: left Lower Extremity Injury Location: ankle Lower Extremity Immobilizer: [employer] Medical Decision Making - Medical Decision Making 25-year-old male presents to the emergency department with a chief complaint of a left ankle injury. He is neurovascularly intact. X-ray of the foot and ankle shows no acute findings. I will apply an air cast on him. Advised to follow-up with exchange specialist. Patient lately suffered a moderate ankle sprain. Return parameters were discussed with patient was understanding and agreeable. KAREEM. His discussed with physician. Disposition Clinical Impression: Left ankle sprain, Left ankle injury Disposition: HOME SELF-CARE Condition: Stable Instructions (If sedation given, give patient instructions): Ankle Sprain (ED) Additional Instructions: Please return to the Emergency Department if symptoms worsen or any other concerns. Rest, ice, compression, elevation. Follow up with an exchange specialist. Is patient prescribed a controlled substance at d/c from ED?: No Referrals: None,Stated [Primary Care Provider] - 1-2 days Kailash Mireles DO [Doctor of Osteopathic Medicine] - 1-2 days Time of Disposition: 16:22
--- NOTE | 2021-03-19 16:08 | XR ---
EXAMINATION TYPE: XR ankle complete LT, XR foot complete LT DATE OF EXAM: 03/19/2021 CLINICAL HISTORY: Rolling injury with pain. TECHNIQUE: Frontal, lateral and oblique images of the ankle and foot are obtained. COMPARISON: Left ankle x-ray July 18, 2020. FINDINGS: There is no acute fracture/dislocation evident in the left ankle. The ankle mortise appea rs within normal limits. New Mild soft tissue swelling over lateral malleolus on current study. There is no acute fracture or dislocation evident in the left foot. The joint spaces in the left clem t are preserved. Overlying soft tissue is unremarkable. IMPRESSION: There is no acute fracture or dislocation in the left ankle or foot.
[2021-03-19 16:48] VITALS: BP 135/78; PULSE 73; RESP 17; TEMP 98.5
== END 2021-03-19 16:46 | disposition home or self-care (01) ==
LOC: EC 14:22
DX: S93.402A Sprain of unspecified ligament of left ankle, initial encounter (principal); W18.30XA Fall on same level, unspecified, initial encounter; Y93.67 Activity, basketball; F17.200 Nicotine dependence, unspecified, uncomplicated; F12.90 Cannabis use, unspecified, uncomplicated
CPT/HCPCS: 99283

== ENCOUNTER 2021-06-06 17:29 | Emergency (ER) | payer OTHER ==
[2021-06-06 17:46] VITALS: RESP 18
--- NOTE | 2021-06-06 17:46 | ED ---
General Adult HPI <Ajit Davis - Last Filed: 06/06/21 17:46> - General Source: patient, RN notes reviewed <Juventino Rodriguez - Last Filed: 06/06/21 19:31> - General Stated complaint: finger injury - History of Present Illness Initial comments: 26-year-old male presenting to the emergency department with a chief complaint of left pinky finger injury. This occurred about one hour after arrival. Gareth rust states initially jammed the finger finger. Patient reports swelling at the PIP joint. Denies any numbness or tingling. Reports some swelling and limited range of motion and there is pain to palpation. (Ajit Davis) Patient is a 26-year-old male that presents to the emergency department complaining of left pinky injury after jamming it playing basketball. He notes that this happened shortly prior to arrival. He notes it is swollen and painful to move. He denies any numbness tingling. He denied any issues at this time. He denied any chest pain shortness breath headache nausea vomiting diarrhea constipation fever fatigue chills. (Juventino Rodriguez) - Related Data Home Medications Medication Instructions Recorded Confirmed No Known Home Medications 03/16/21 03/16/21 Allergies Allergy/AdvReac Type Severity Reaction Status Date / Time No Known Allergies Allergy Verified 06/06/21 17:47 Review of Systems ROS Other: All systems not noted in ROS Statement are negative. <Ajit Davis - Last Filed: 06/06/21 17:46> ROS Other: All systems not noted in ROS Statement are negative. <Juventino Rodriguez - Last Filed: 06/06/21 19:31> ROS Statement: Those systems with pertinent positive or pertinent negative responses have been documented in the HPI. Past Medical History Past Medical History: No Reported History History of Any Multi-Drug Resistant Organisms: None Reported Past Surgical History: No Surgical Hx Reported Past Psychological History: No Psychological Hx Reported Smoking Status: Current every day smoker Past Alcohol Use History: Rare Past Drug Use History: Marijuana <Ajit Davis - Last Filed: 06/06/21 17:46> General Exam Limitations: no limitations General appearance: alert, in no apparent distress <Ajit Davis - Last Filed: 06/06/21 17:46> General appearance: alert, in no apparent distress Head exam: Present: atraumatic, normocephalic, normal inspection Eye exam: Present: normal appearance, PERRL, EOMI. Absent: scleral icterus, conjunctival injection, periorbital swelling Neck exam: Present: normal inspection Respiratory exam: Present: normal lung sounds bilaterally. Absent: respiratory distress, wheezes, rales, rhonchi, stridor Cardiovascular Exam: Present: regular rate, normal rhythm, normal heart sounds. Absent: systolic murmur, diastolic murmur, rubs, gallop, clicks Extremities exam: Present: normal inspection, full ROM, normal capillary refill, other (Left pinky swollen, tender over the PIP, decreased range of motion se condary to pain.). Absent: tenderness, pedal edema, joint swelling, calf tenderness Neurological exam: Present: alert, oriented X3 Psychiatric exam: Present: normal affect, normal mood Skin exam: Present: warm, dry, intact, normal color. Absent: rash <Juventino Rodriguez - Last Filed: 06/06/21 19:31> Course Vital Signs 06/06/21 17:42 Temperature 98.3 F Pulse Rate 68 Respiratory 18 Rate Blood Pressure 118/73 O2 Sat by Pulse 98 Oximetry Procedures - Orthopedic Splinting/Casting Injury #1 Side: left Upper Extremity Injury Location: finger (Pinky) Upper Extremity Immobilizer: aluminum form splint <Juventino Rodriguez - Last Filed: 06/06/21 19:31> Medical Decision Making - Radiology Data Radiology results: report reviewed, image reviewed <Juventino Rodriguez - Last Filed: 06/06/21 19:31> - Medical Decision Making 26-year-old male with left pinky injury from basketball. X-ray of the left hand/pinky ordered. X-ray shows a comminuted oblique fracture through the left proximal phalange. Splint will be placed. Tylenol 3 starter pack given. Case discussed with Dr. Dodge, patient can discharge home with follow-up to orthopedics. (Juventino Rodriguez) - Radiology Data X-ray of the left fingers: Acute mildly displaced, mildly comminuted oblique fracture to the proximal phalangeal diaphysis of the fifth digit with associated soft tissue swelling. (Juventino Rodriguez) Disposition <Ajit Davis - Last Filed: 06/06/21 17:46> Is patient prescribed a controlled substance at d/c from ED?: No Time of Disposition: 19:31 <Juventino Rodriguez - Last Filed: 06/06/21 19:31> Clinical Impression: Fracture of proximal phalanx of left little finger Disposition: HOME SELF-CARE Condition: Stable Instructions (If sedation given, give patient instructions): Hand Fracture (ED) Additional Instructions: Please return to the Emergency Department if symptoms worsen or any other concerns. Follow-up with orthopedics in 1-2 days. Take Tylenol 3 as prescribed. Keep splint on throughout the day. Referrals: None,Stated [Primary Care Provider] - 1-2 days
--- NOTE | 2021-06-06 18:44 | XR ---
EXAMINATION TYPE: XR finger LT DATE OF EXAM: 06/06/2021 CLINICAL HISTORY: Left fifth finger pain after basketball injury TECHNIQUE: Frontal, lateral and oblique images of the left fifth finger are obtained. COMPARISON: None. FINDINGS: Acute mildly displaced, mildly comminuted oblique fracture through the proximal phalangeal diaphysis of the fifth digit. No extension to the joint space. No dislocation. Mild diffuse soft tissue swellin g of the fifth proximal digit. IMPRESSION: Acute mildly displaced, mildly comminuted oblique fracture through the proximal phalangeal diaphysis of the fifth digit with associated soft tissue swelling.
[2021-06-06] MEDS ORDERED: ACET/COD 300 MG/30 MG STARTER PACK 6 TAB BTL PO STA (19:31)
[2021-06-06 19:45] VITALS: BP 132/78; PULSE 74; TEMP 98.2
== END 2021-06-06 19:47 | disposition home or self-care (01) ==
LOC: EC 17:29
DX: S62.617A Displaced fracture of proximal phalanx of left little finger, initial encounter for closed fracture (principal); F17.200 Nicotine dependence, unspecified, uncomplicated; F12.90 Cannabis use, unspecified, uncomplicated; W21.05XA Struck by basketball, initial encounter; Y93.67 Activity, basketball
CPT/HCPCS: 99284

== ENCOUNTER 2021-07-20 09:43 | Emergency (ER) | payer OTHER ==
[2021-07-20 10:47] VITALS: BP 118/73; PULSE 63; RESP 18; TEMP 98.6
--- NOTE | 2021-07-20 11:24 | XR ---
EXAMINATION TYPE: XR finger LT DATE OF EXAM: 07/20/2021 COMPARISON: Left fifth finger x-ray June 06, 2021 HISTORY: Prior fracture injury 3 months ago with persistent pain. TECHNIQUE: 3 views left fifth finger. FINDINGS: Some callus formation is present seen best on lateral image at site of minimally displaced comminuted type fracture running along the ulnar aspect fifth proximal phalanx diaphysis extending to the distal metaphysis extending radially. Persistent visualization of linear lucency consistent with incomplete healed fracture. Joint spaces are maintained. Persistent and stable mild focal soft tissu e swelling over the distal aspect of the fifth proximal phalanx. No new fracture is seen. IMPRESSION: As above.
--- NOTE | 2021-07-20 11:36 | ED ---
General Adult HPI - General Chief complaint: Extremity Injury, Lower Stated complaint: broken finger Time Seen by Provider: 07/20/21 11:27 Source: patient, family, RN notes reviewed Mode of arrival: ambulatory Limitations: no limitations - History of Present Illness Initial comments: Patient is a 26-year-old male presenting to emergency Department for r eevaluation of a fracture of his left pinky finger. He states this happened a couple months ago he was playing basketball. He never went to see an orthopedic. He states he continues to have pain, swelling and limited range of motion in the pinky. He wanted to be reevaluated. He denies any fevers or chills, no further injury since the initial injury. He has no further complaints. - Related Data Home Medications Medication Instructions Recorded Confirmed No Known Home Medications 03/16/21 03/16/21 Allergies Allergy/AdvReac Type Severity Reaction Status Date / Time No Known Allergies Allergy Verified 07/20/21 10:47 Review of Systems ROS Statement: Those systems with pertinent positive or pertinent negative responses have been documented in the HPI. ROS Other: All systems not noted in ROS Statement are negative. Past Medical History Past Medical History: No Reported History History of Any Multi-Drug Resistant Organisms: None Reported Past Surgical History: No Surgical Hx Reported Past Psychological History: No Psychological Hx Reported Smoking Status: Current every day smoker Past Alcohol Use History: Rare Past Drug Use History: Marijuana General Exam - General Exam Comments Initial Comments: GENERAL: Patient is well-developed and well-nourished. Patient is nontoxic and in no acute distress. HEAD: Atraumatic, normocephalic. EYES: Pupils equal round and reactive to light, extraocular movements intact, sclera anicteric, conjunctiva are normal. Eyelids were unremarkable. LUNGS: Unlabored respirations. Breath sounds clear to auscultation bilaterally and equal. No wheezes rales or rhonchi. HEART: Regular rate and rhythm without murmurs, rubs or gallops. MUSCULOSKELETAL: Patient has swelling noted to the proximal left pinky finger, limited range of motion secondary to pain. Neurovascular intact. No clubbing or cyanosis. NEUROLOGICAL: Patient is alert and oriented x 3. SKIN: Warm, Dry, normal turgor, no rashes or lesions noted. Limitations: no limitations Course Vital Signs 07/20/21 10:42 Temperature 98.6 F Pulse Rate 63 Respiratory 18 Rate Blood Pressure 118/73 O2 Sat by Pulse 99 Oximetry Procedures - Orthopedic Splinting/Casting Injury #1 Side: left Upper Extremity Injury Location: finger (pinky) Upper Extremity Immobilizer: aluminum form splint, finger (other) (finger splint) Medical Decision Making - Medical Decision Making Patient is a 26-year-old male here for recheck of an injury to his left pinky finger to happen a couple months ago. Reviewing patient's x-ray on 06/06/2021 of his initial injury, he had a mildly displaced, mildly comminuted oblique fracture through the proximal phalange. X-rays today showed some callus formation is present at the site of a minimally displaced comminuted fracture in the fifth proximal phalanx. Consistent with an incomplete healed fracture. Patient will be given referral to orthopedics. He states he also has lost his initial splint, did give him a new splint applied it. He is stable for discharge and he is in agreement with this plan of care. Disposition Clinical Impression: Fracture of phalanx of left little finger with delayed healing Disposition: HOME SELF-CARE Condition: Stable Instructions (If sedation given, give patient instructions): Finger Fracture (ED) Additional Instructions: Please return to the Emergency Department if symptoms worsen or any other concerns. Please follow-up with orthopedics. Is patient prescribed a controlled substance at d/c from ED?: No Referrals: None,Stated [Primary Care Provider] - 1-2 days Anibal Lam DO [Doctor of Osteopathic Medicine] - 1-2 days Time of Disposition: 11:36
== END 2021-07-20 11:57 | disposition home or self-care (01) ==
LOC: EC 09:43
DX: S62.617G Displaced fracture of proximal phalanx of left little finger, subsequent encounter for fracture with delayed healing (principal); F17.200 Nicotine dependence, unspecified, uncomplicated; F12.90 Cannabis use, unspecified, uncomplicated; W21.05XD Struck by basketball, subsequent encounter; Y93.67 Activity, basketball
CPT/HCPCS: 99284